=== PATIENT | male | born 1960 | race Caucasian/White ===

== ENCOUNTER 2018-12-18 21:17 | Emergency (ER) | payer BC ==
[2018-12-19] MEDS ORDERED: KETOROLAC 30 MG INJ IM (02:00)
[2018-12-19] MEDS ORDERED: AMOXICILLIN/CLAV 875 MG TAB PO (02:00)
[2018-12-19] MEDS ORDERED: DIPHTH/TET/ACEL PERTUSS (ADULT) 0.5 ML VIAL IM* (02:30)
== END 2018-12-19 02:45 | disposition left against medical advice (07) ==
LOC: FTE 21:17
DX: S51.831A Puncture wound without foreign body of right forearm, initial encounter (principal); S51.832A Puncture wound without foreign body of left forearm, initial encounter; W54.0XXA Bitten by dog, initial encounter; Y92.9 Unspecified place or not applicable
CPT/HCPCS: 73090; 90715; 99283-25